=== PATIENT | female | born 1950 | race Caucasian/White ===

== ENCOUNTER 2017-10-15 13:32 | Inpatient (IN) | payer MEDICARE, MEDICAID ==
[~2017-10-15] VITALS: Ht 167.6 cm; Wt 75.8 kg
[2017-10-15] MEDS ORDERED: FENTANYL PF 100 MCG/2ML ONE ×2 (13:41→13:55)
[2017-10-15 13:54] LABS: BASOPHILS # (AUTO) 0.05 x10^3/uL (0-0.1); BASOPHILS % (AUTO) 1 % (0-1); EOSINOPHILS # (AUTO) 0.27 x10^3/uL (0-0.4); EOSINOPHILS % (AUTO) 3 % (1-7); LYMPHOCYTES # (AUTO) 3.97 x10^3/uL (1-3.4); LYMPHOCYTES % (AUTO) 36 % (22-44); MD NO; MEAN CORPUSCULAR HEMOGLOBIN 30.5 pg (27.0-34.8); MEAN CORPUSCULAR HGB CONC 33.9 g/dL (32.4-35.8); MEAN CORPUSCULAR VOLUME 89.9 fL (80-100); MEAN PLATELET VOLUME 8.6 fL (7.4-10.4); MONOCYTES # (AUTO) 0.47 x10^3/uL (0.2-0.8); MONOCYTES % (AUTO) 4 % (2-9); NEUTROPHILS # (AUTO) 6.15 x10^3/uL (1.8-6.8); NEUTROPHILS % (AUTO) 56 % (42-75); PLATELET COUNT 239 x10^3/uL (130-400); RED BLOOD COUNT 4.92 x10^6/uL (3.82-5.3); RED CELL DISTRIBUTION WIDTH 12.9 % (9.6-15.2)
[2017-10-15] MEDS ORDERED: HEPARIN 1,000 UNITS/ML, 10ML ONE (13:56)
[2017-10-15] MEDS ORDERED: TICAGRELOR 90 MG TABLET ONE (13:56)
[2017-10-15] MEDS ORDERED: MIDAZOLAM 1 MG/ML, 5ML ONE (13:56)
[2017-10-15] MEDS ORDERED: VERAPAMIL 2.5 MG/ML, 2ML ONE (13:56)
[2017-10-15] MEDS ORDERED: BIVALIRUDIN 250 MG ONE (13:56)
[2017-10-15] MEDS: FENTANYL PF 100 MCG/2ML IVPush PRN ×3 (14:03→23:35)
[2017-10-15 14:04] LABS: INTERNATIONAL NORMALIZED RATIO 0.98 (0.93-1.1); PROTHROMBIN TIME 10.2 Seconds (9.6-11.5)
[2017-10-15] MEDS ORDERED: ONDANSETRON 2MG/ML, 2ML ONE (14:18)
[2017-10-15] MEDS ORDERED: PHENYLEPHRINE 10 MG/ML ONE (14:45)
[2017-10-15] MEDS ORDERED: PRASUGREL 10 MG TABLET ONE ×2 (14:45→14:48)
[2017-10-15] MEDS ORDERED: BIVALIRUDIN 250 MG in DEXTROSE 5% 50 ML IV SCH (14:54)
[2017-10-15] MEDS ORDERED: SODIUM CHLORIDE 0.9% 1,000 ML IV SCH (14:54)
[2017-10-15] MEDS ORDERED: AMIODARONE 900 MG in DEXTROSE 5% 482 ML IV PRN (15:00)
[2017-10-15] MEDS ORDERED: AMIODARONE 150 MG in DEXTROSE 5% 100 ML IV ONE (15:00)
[2017-10-15] MEDS ORDERED: FILTER 0.22 MICRON IV PRN (15:30)
[2017-10-15 15:46] VITALS: BP 98/51
[2017-10-15] MEDS: METOPROLOL TARTRATE 25 MG TABLET PO SCH (17:45)
[2017-10-15] MEDS: ATORVASTATIN 40 MG TABLET PO SCH (20:44)
[2017-10-16 03:00] VITALS: BP 142/64
[2017-10-16] MEDS ORDERED: ONDANSETRON 2MG/ML, 2ML IVPush PRN (04:30)
[2017-10-16] MEDS: SIMETHICONE 80 MG CHEW TAB PO PRN ×2 (04:44→19:58)
[2017-10-16 04:54] LABS: ANION GAP 8 mmol/L (5-15); CALCIUM 8.9 mg/dL (8.5-10.1); CHLORIDE 106 mmol/L (98-107); CREATININE 0.96 mg/dL (0.55-1.02)
[2017-10-16] MEDS: METOPROLOL TARTRATE 25 MG TABLET PO SCH ×2 (06:00→19:58)
[2017-10-16] MEDS: PRASUGREL 10 MG TABLET PO SCH (08:20)
[2017-10-16] MEDS: ASPIRIN 81 MG TABLET EC PO SCH (08:20)
[2017-10-16 13:25] VITALS: BP 127/73
[2017-10-16] MEDS ORDERED: NITROGLYCERIN 0.4 MG BOTTLE (25 TABS) SL ONE (18:17)
[2017-10-16 18:21] VITALS: BP 143/80
[2017-10-16] MEDS ORDERED: NITROGLYCERIN SINGLE TAB 0.4 MG SL PRN (18:30)
[2017-10-16 19:57] VITALS: BP 124/71
[2017-10-16] MEDS: ATORVASTATIN 40 MG TABLET PO SCH (20:04)
[2017-10-16] MEDS: SODIUM CHLORIDE 0.9% 1,000 ML IV SCH (20:07)
[2017-10-17 02:53] VITALS: BP 121/80
[2017-10-17] MEDS: SODIUM CHLORIDE 0.9% 1,000 ML IV SCH ×3 (05:05→18:40)
[2017-10-17 07:12] VITALS: BP 115/65
[2017-10-17] MEDS: PRASUGREL 10 MG TABLET PO SCH (09:53)
[2017-10-17] MEDS: ASPIRIN 81 MG TABLET EC PO SCH (09:53)
[2017-10-17] MEDS: METOPROLOL TARTRATE 25 MG TABLET PO SCH ×2 (09:55→18:39)
[2017-10-17 13:30] VITALS: BP 140/82
[2017-10-17 18:38] VITALS: BP 127/74
[2017-10-17 19:19] VITALS: BP 117/75
[2017-10-17] MEDS: SIMETHICONE 80 MG CHEW TAB PO PRN (20:43)
[2017-10-17] MEDS: ATORVASTATIN 40 MG TABLET PO SCH (20:44)
[2017-10-18 02:01] VITALS: BP 130/76
[2017-10-18] MEDS: METOPROLOL TARTRATE 25 MG TABLET PO SCH (06:45)
[2017-10-18 06:51] VITALS: BP 134/73
[2017-10-18] MEDS: ASPIRIN 81 MG TABLET EC PO SCH (09:02)
[2017-10-18] MEDS: PRASUGREL 10 MG TABLET PO SCH (09:02)
[2017-10-18] MEDS ORDERED: SIME80TA16 PO (11:08)
[2017-10-18] MEDS ORDERED: METO25TA35 PO (11:08)
[2017-10-18] MEDS ORDERED: PRAS10TA4 PO (11:08)
[2017-10-18] MEDS ORDERED: ATOR40TA78 PO (11:08)
[2017-10-18] MEDS ORDERED: ASPI-621 PO (11:08)
[2017-10-18 13:01] VITALS: BP 131/75
== END 2017-10-18 18:01 | disposition home or self-care (01) | DRG 246 ==
LOC: ED 14:09 → EDIP 14:20 → CCU 14:56 → 5SO 10-16 12:06
PROVIDERS: ADMIT Internal Medicine; ATTEND Internal Medicine
PROC: 027035Z Dilation of Coronary Artery, One Artery with Two Drug-eluting Intraluminal Devices, Percutaneous Approach (ICD-10-PCS; principal; 2017-10-15)
PROC: 4A023N7 Measurement of Cardiac Sampling and Pressure, Left Heart, Percutaneous Approach (ICD-10-PCS; 2017-10-15)
PROC: 5A2204Z Restoration of Cardiac Rhythm, Single (ICD-10-PCS; 2017-10-15)
PROC: B2111ZZ Fluoroscopy of Multiple Coronary Arteries using Low Osmolar Contrast (ICD-10-PCS; 2017-10-15)
PROC: B2151ZZ Fluoroscopy of Left Heart using Low Osmolar Contrast (ICD-10-PCS; 2017-10-15)
DX: I21.19 ST elevation (STEMI) myocardial infarction involving other coronary artery of inferior wall (principal); R57.0 Cardiogenic shock; I42.9 Cardiomyopathy, unspecified; E66.9 Obesity, unspecified; E78.5 Hyperlipidemia, unspecified; F17.200 Nicotine dependence, unspecified, uncomplicated; I10 Essential (primary) hypertension; I25.10 Atherosclerotic heart disease of native coronary artery without angina pectoris; I48.0 Paroxysmal atrial fibrillation; Z68.27 Body mass index [BMI] 27.0-27.9, adult; Z90.710 Acquired absence of both cervix and uterus
CPT/HCPCS: 36415; 71045; 80047; 80048; 82040; 84484; 85014; 85018; 85025; 85610; 85730; 87081; 93005; 93306; 93458; 99156; 99157; 99291; C1760; C1894; G0378; J0583; J1644; J2250; J2405; J3010; C1757; C1769; C1874; C1887; J0282; J2370; J7030; Q9967

== ENCOUNTER 2020-07-15 12:37 | Outpatient (CLI) | payer MEDICARE, MEDICAID ==
[~2020-07-15 12:37] MED LIST: ASPI81TA45 PO; ATOR40TA78 PO; METO25TA35 PO; PRAS10TA4 PO; SIME80TA16 PO
== END 2020-07-15 23:59 | disposition home or self-care (01) ==
LOC: CVU 12:37
PROVIDERS: ATTEND Internal Medicine Cardiovascular Disease
DX: I65.23 Occlusion and stenosis of bilateral carotid arteries (principal); I25.10 Atherosclerotic heart disease of native coronary artery without angina pectoris
CPT/HCPCS: 93880